=== PATIENT | male | born 1955 | race Caucasian/White ===

== ENCOUNTER → 2017-06-29 | Emergency (ER) | payer OTHER ==
[~2017-06-29] VITALS: Ht 182.9 cm; Wt 79.4 kg
[~2017-06-29] MED LIST: CLONAZEPAM0.5 MG; CLONAZEPAM1 MG PO
== END | disposition left against medical advice (07) ==
LOC: ER 16:01 → EMR PED 16:27
DX: Z53.20 Procedure and treatment not carried out because of patient's decision for unspecified reasons (principal)

== ENCOUNTER 2017-09-21 16:05 | Emergency (ER) | payer OTHER ==
[~2017-09-21] VITALS: Ht 182.9 cm; Wt 79.4 kg
== END 2017-09-21 17:37 | disposition home or self-care (01) ==
LOC: ER 16:05
DX: R53.81 Other malaise (principal); F06.4 Anxiety disorder due to known physiological condition

== ENCOUNTER 2017-10-26 16:06 | Emergency (ER) | payer OTHER ==
[~2017-10-26] VITALS: Ht 182.9 cm; Wt 79.4 kg
== END 2017-10-26 18:03 | disposition home or self-care (01) ==
LOC: ER 16:06
DX: G47.09 Other insomnia (principal)

== ENCOUNTER 2017-12-09 15:02 | Emergency (ER) | payer OTHER ==
[~2017-12-09] VITALS: Ht 188 cm; Wt 83.9 kg
== END 2017-12-09 17:05 | disposition home or self-care (01) ==
LOC: ER 15:02
DX: G47.09 Other insomnia (principal); F41.8 Other specified anxiety disorders; K29.60 Other gastritis without bleeding